=== PATIENT | female | born 1975 | race Caucasian/White ===

== ENCOUNTER → 2021-01-13 | Outpatient (CLI) | payer OTHER ==
[~2021-01-13] MED LIST: CEFDINIR300 MG PO; CHERATUSSIN AC118 ML PO; LIDOCAINE VISC100 M1 MM; MUCINEX D ER 61 EACH PO; MUCINEX TA600 MG/TA2 PO; TESSALON PERLE100 MG PO
== END ==
LOC: M.CT 07:39
PROVIDERS: ATTEND Nurse Practitioner Family
DX: Z13.6 Encounter for screening for cardiovascular disorders (principal)